=== PATIENT | female | born 1985 | race African-American/Black ===

== ENCOUNTER 2017-09-04 14:11 | Emergency (ER) | payer SELFPAY ==
[~2017-09-04] VITALS: Ht 170.2 cm; Wt 64.0 kg
[2017-09-04 14:31] VITALS: BP 110/69
[2017-09-04] MEDS ORDERED: ACETAMINOPHEN 500MG TABLET PO ONE (16:30)
== END 2017-09-04 21:02 | disposition home or self-care (01) ==
LOC: ER 14:11
DX: M25.512 Pain in left shoulder (principal); M60.9 Myositis, unspecified; M79.1 Myalgia; F12.10 Cannabis abuse, uncomplicated; Z88.0 Allergy status to penicillin
CPT/HCPCS: 93005; 99283